=== PATIENT | female | born 1975 | race Caucasian/White ===

== ENCOUNTER 2020-05-16 07:05 | Observation (INO) ==
[2020-05-16] MEDS ORDERED: Naloxone 0.4 MG/ML INJ IVP PRN (08:26)
[2020-05-16 11:52] VITALS: BP 161/97
[2020-05-16 12:54] LABS: Thyroid Stimulating Hormone 1.033 mcIU/mL (0.340-5.600)
[2020-05-16] MEDS ORDERED: Gabapentin 300 MG CAPSULE PO SCH (15:00)
== END 2020-05-16 14:29 | disposition left against medical advice (07) ==
LOC: 2ANU
PROVIDERS: ADMIT Student in an Organized Health Care Education/Training Program; ATTEND Student in an Organized Health Care Education/Training Program